=== PATIENT | male | born 1985 | race Caucasian/White ===

== ENCOUNTER 2021-10-29 11:03 | Day surgery (SDC) | payer OTHER ==
--- NOTE | 2021-10-25 12:02 | P.HPIHPCON ---
History of Present Illness H&P Date: 10/25/21 Chief Complaint: left-sided ureteral stone this is a 36-year-old male with a history of a 9 mm left-sided proximal stone, he is symptomatically from his stone. Option of left-sided ureteroscopy with holmium laser versus ESWL was discussed with him in detail. Risk and benefit of each approach were discussed. He agreed to proceed with left-sided ureteroscopy with holmium laser. Discussed the risk which includes but not limited to bleeding, infection, injury to the ureter. Risk of anesthesia was also discussed. Consent for Procedure: I have explained the operation/procedure to the patient, including the risks, benefits, side effects, alternative therapies (including not receiving the proposed treatment or service), the likelihood of the patient achieving his/her goals, and potential recuperation problems for the procedure/sedation/analgesia, as well as any blood products, if indicated. I also explained to the patient the risks, benefits and side effects of the alternatives, as well as the risks related to not receiving the proposed procedure, care, treatment, or services. Surgical - Exam - General no distress, no pain - Eyes normal ocular movement, no pale - ENT normal nares, normal mucosa - Respiratory normal expansion, normal respiratory effort - Abdomen Abdomen: soft, non tender - Psychiatric oriented to time, oriented to person, oriented to place Assessment and Plan Assessment: OR for left-sided ureteroscopy, holmium laser lithotripsy, stone basketing and stent
[~2021-10-29 11:03] MED LIST: DEXAMETHASONE SOD PHOSPHATE 4 MG/ML 1 ML VIAL IV ONE; HYDROmorphone 0.5 MG/0.5 ML SYRINGE IVP PRN; LACTATED RINGERS 1,000 ML IV SCH; MIDAZOLAM 2 MG/2 ML VIAL IV PRN; ONDANSETRON 4 MG/2 ML VIAL IVP ONE; SCOPOLAMINE 1 MG/72 HR PATCH TRANSDERM ONE
[2021-10-29] MEDS ORDERED: LIDOCAINE 1% (10MG/ML) FOR IV START INTRADERMA ONE (11:40)
[2021-10-29] MEDS ORDERED: fentaNYL (PF) 50 MCG/ML 2 ML AMP ONE (11:41)
[2021-10-29] MEDS ORDERED: KETOROLAC 15 MG/ML 1 ML VIAL ONE (11:41)
[2021-10-29] MEDS ORDERED: PROPOFOL 10 MG/ML 20 ML VIAL IV ONE (11:41)
[2021-10-29] MEDS ORDERED: MIDAZOLAM 2 MG/2 ML VIAL ONE (11:41)
[2021-10-29] MEDS ORDERED: LIDOCAINE 2% INJ 20 MG/ML (2 ML VIAL) ONE (11:41)
--- NOTE | 2021-10-29 11:55 | XR ---
EXAMINATION TYPE: XR KUB DATE OF EXAM: 10/29/2021 Comparison: None Clinical History: 36-year-old male preop left-sided kidney stones Findings: Nonobstructive bowel gas pattern. Mild stool burden. There is a left-sided 1.2 cm calcification in th e paramedian abdomen, likely in the renal pelvis or upper left ureter. A couple calculi project at th e left kidney measuring up to 6 mm. Impression: A 1.2 cm stone probably in the left renal pelvis or upper left ureter. Additional nonobstructive left renal calculi measuring up to 6 mm.
--- NOTE | 2021-10-29 13:00 | FL ---
Intraoperative/procedural fluoroscopic services were provided for left ureteral stone/stent placement . Total fluoroscopy time is 25 seconds with a total of 3 submitted images to PACS. Please see the ope rative note for further details.
[2021-10-29 13:05] VITALS: TEMP 96.9
--- NOTE | 2021-10-29 13:14 | P.OP ---
Date of Procedure: 10/29/21 Preoperative Diagnosis: Left ureteral stone Postoperative Diagnosis: Same Procedure(s) Performed: Cystoscopy, left ureteroscopy, holmium laser lithotripsy, stone basketing and stent insertion Implants: 6-[place]ian by 26 cm stent in the left ureter, left on a string Anesthesia: AL Surgeon: Zohaib Becker Estimated Blood Loss (ml): 5 Pathology: other (left ureteral stone) Condition: stable Disposition: PACU Indications for Procedure: this is a 36-year-old male with a history of a 9 mm left-sided proximal stone, he is symptomatically from his stone. Option of left-sided ureteroscopy with holmium laser versus ESWL was discussed with him in detail. Risk and benefit of each approach were discussed. He agreed to proceed with left-sided ureteroscopy with holmium laser. Discussed the risk which includes but not limited to bleeding, infection, injury to the ureter. Risk of anesthesia was also discussed. Operative Findings: Left-sided proximal stone Description of Procedure: Patient brought to the operating room, general anesthesia was induced. He was prepped and draped in sterile fashion and placed in dorsal lithotomy position. Cystoscopy fitted 21-[place]ian sheath was inserted per urethra, cystoscopy was performed which showed no abnormality within the bladder. Patient had a small prostate. Attention was then carried to the left ureteral orifice which was intubated with a sensor wire. Next under fluoroscopy 1113 [place] access sheath was passed over the wire and into the proximal ureter. Next flexible ureteroscope was inserted through the access sheath, ureteroscopy was performed which showed a stone in the proximal ureter. Using the holmium laser the stone was dusted. After dusting the stone the scope was advanced into the kidney, renoscopy was performed which showed no sizable fragments or any additional stones. On fluoroscopy no residual radiopaque fragments were visualized. Pullback ureteroscopy was performed which showed no injury to ureter or ureteral stone, as ureteroscope was withdrawn a sensor wire was advanced through. Next a ureteral stent was passed over the wire, the proximal curl was visualized on fluoroscopy and distal curl was visualized using the cystoscope. The stent was left on a string and taped to the patient penis. Patient tolerated the procedure well taken to recovery in stable condition
[2021-10-29 13:18] VITALS: RESP 16
[2021-10-29 13:50] VITALS: BP 153/90; PULSE 67
== END 2021-10-29 14:10 | disposition home or self-care (01) ==
LOC: OR 11:03
PROVIDERS: ATTEND Urology
DX: N20.1 Calculus of ureter (principal); K21.9 Gastro-esophageal reflux disease without esophagitis; F17.210 Nicotine dependence, cigarettes, uncomplicated; Z87.442 Personal history of urinary calculi; Z79.891 Long term (current) use of opiate analgesic
CPT/HCPCS: 82365; 74018; 52356; C2625; C1769; J2250; J1100; J0690; J2405; J3010; J1885; J2704; J1170; J2001